=== PATIENT | female | born 1965 | race Caucasian/White ===

== ENCOUNTER 2019-08-04 12:18 | Emergency (ER) | payer OTHER ==
--- NOTE | 2019-08-04 12:45 | ED Physician Documentation ---
History of Present Illness - Stated complaint Stated Complaint: ABD PX - Chief complaint Chief Complaint: Abd Pain - Additonal information Additional information: This is a 54-year-old female who presents with migratory abdominal cramping pa in, nausea, vomiting, and diarrhea. Patient began feeling rundown a few days ago, and then early this morning she began having multiple episodes of nonbloody vomiting and nonbloody diarrhea. She thinks she may have norovirus. She has cramping which comes and goes but can be severe at times, is currently worse in the left upper quadrant. She denies any abdominal surgeries other than a tubal ligation. No fever. 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 - Present Medications Home Medications: Ambulatory Orders Medication Instructions Recorded Confirmed Ondansetron Odt [Zofran] 4 mg TL Q6H PRN #10 tablet 08/04/19 - Allergies Allergies/Adverse Reactions: Allergies Allergy/AdvReac Type Severity Reaction Status Date / Time diatrizoate meglumine Allergy Hives Verified 08/04/19 12:31 [From Gastrografin] diatrizoate sodium Allergy Hives Verified 08/04/19 12:31 [From Gastrografin] - Living Situation Living Situation: reports: With family Living Arrangement: reports: At home PD ED PE NORMAL - Vitals Vital signs reviewed: Yes - General General: Alert and oriented X 3, No acute distress - HEENT HEENT: PERRL - Neck Neck: Supple, no meningeal sign - Cardiac Cardiac: RRR, No murmur - Respiratory Respiratory: Clear bilaterally - Abdomen Abdomen: Other (Soft, mild epigastric and left upper quadrant tenderness, no right upper quadrant tenderness, negative Herrera sign, no lower abdominal tenderness.) - Derm Derm: Warm and dry - Extremities Extremities: No deformity - Neuro Neuro: Alert and oriented X 3 - Psych Psych: Normal mood, Normal affect Results - Vitals Vitals: Oxygen O2 Source Room air - Labs Labs: Laboratory Tests 08/04/19 08/04/19 08/04/19 13:07 13:07 14:11 WBC 8.0 RBC 4.82 Hgb 14.1 Hct 42.2 MCV 87.6 MCH 29.3 MCHC 33.4 RDW 12.7 Plt Count 303 MPV 9.4 Neut # (Auto) 6.8 H Lymph # (Auto) 0.8 L [place] # (Auto) 0.3 Eos # (Auto) 0.0 Baso # (Auto) 0.0 Absolute Nucleated RBC 0.00 Nucleated RBC % 0.0 Sodium 139 Potassium 3.6 Chloride 101 Carbon Dioxide 26 Anion Gap 12.0 BUN 16 Creatinine 0.8 Estimated GFR (MDRD) 74 L Glucose 121 H Calcium 9.4 Total Bilirubin 0.8 AST 26 ALT 23 Alkaline Phosphatase 62 Total Protein 8.0 Albumin 4.7 Globulin 3.3 Albumin/Globulin Ratio 1.4 Lipase 40 Urine Color YELLOW Urine Clarity CLEAR Urine pH 8.5 H Ur Specific [place] 1.015 Urine Protein NEGATIVE Urine Glucose (UA) NEGATIVE Urine Ketones TRACE Urine Occult Blood NEGATIVE Urine Nitrite NEGATIVE Urine Bilirubin NEGATIVE Urine Urobilinogen 0.2 (NORMAL) Ur Leukocyte Esterase NEGATIVE Ur Microscopic Review NOT INDICATED Urine Culture Comments NOT INDICATED Urine HCG, Qual NEGATIVE PD MEDICAL DECISION MAKING - ED course Complexity details: considered differential (Gastroenteritis, cholecystitis, pancreatitis, enteritis, GERD, electrolyte abnormality) ED course: Patient is nontoxic-appearing on exam, she has benign abdomen with no focal right upper quadrant or right lower quadrant tenderness. Labs are drawn and are unremarkable. Urine is negative for signs of infection. Patient was given Zofran, fluids, And dicyclomine, and on repeat exam she is feeling improved. She still does have some migratory cramping, but continues have a benign abdominal exam. Given her nausea vomiting diarrhea and migratory cramping this does appear to be a gastroenteritis, which has been going through the community recently. I discussed supportive care and prescribed her Zofran, and discussed return precautions including persistent vomiting or abdominal pain which is increasing or settling to one area of the demented. She is tolerating PO here. Patient agreed with this plan and was discharged home Departure - Departure Disposition: 01 Home, Self Care Clinical Impression: Gastroenteritis Condition: Good Instructions: ED Gastroenteritis Viral Follow-Up: Your,PCP [Other] - Within 1 week Prescriptions: Ondansetron Odt [Zofran] 4 mg TL Q6H PRN #10 tablet PRN Reason: Nausea / Vomiting Comments: You appear to have a gastroenteritis/stomach bug. You may take the Zofran as prescribed for nausea. You may also try Tylenol for mild discomfort. If you are having persistent vomiting despite the Zofran, inability to hold down fluids, or if your abdominal pain is increasing or settling to one part of the abdomen, particularly the right lower or the right upper part of the abdomen, return to the emergency department. Discharge Date/Time: 08/04/19 14:43
[2019-08-04] MEDS ORDERED: SODIUM CHLORIDE 0.9% 1,000 ML IV STA (12:54)
[2019-08-04] MEDS ORDERED: ONDANSETRON 4 MG/2 ML VIAL IVP STA (12:54)
[2019-08-04 13:14] LABS: BASOPHILS % (AUTO) 0.3 %; EOSINOPHILS % (AUTO) 0.1 %; HGB - HEMOGLOBIN 14.1 g/dL (12.0-16.0); LYMPHOCYTES # (AUTO) 0.8 10^3/uL (1.5-3.5); LYMPHOCYTES % (AUTO) 10.5 %; MEAN CORPUSCULAR HEMOGLOBIN 29.3 pg (27.0-31.0); MEAN CORPUSCULAR HGB CONC 33.4 g/dL (32.0-36.0); MEAN CORPUSCULAR VOLUME 87.6 fL (81.0-99.0); MEAN PLATELET VOLUME 9.4 fL (7.9-10.8); MONOCYTES # (AUTO) 0.3 10^3/uL (0.0-1.0); MONOCYTES % (AUTO) 3.6 %; NEUTROPHILS # (AUTO) 6.8 10^3/uL (1.5-6.6); PLT - PLATELET COUNT 303 10^3/uL (130-450); RED BLOOD COUNT 4.82 10^6/uL (4.20-5.40); RED CELL DISTRIBUTION WIDTH 12.7 % (12.0-15.0)
[2019-08-04 14:05] LABS: ALBUMIN 4.7 g/dL (3.2-5.5); ALBUMIN/GLOBULIN RATIO 1.4 (1.0-2.2); BILIRUBIN,TOTAL 0.8 mg/dL (0.2-1.0); CALCIUM 9.4 mg/dL (8.5-10.3); CREATININE 0.8 mg/dL (0.4-1.0)
[2019-08-04 14:19] LABS: BILIRUBIN,URINE NEGATIVE (NEGATIVE); GLUCOSE, URINE (UA) NEGATIVE (NEGATIVE); KETONES,URINE (UA) TRACE mg/dL (NEGATIVE); LEUKOCYTE ESTERASE, URINE NEGATIVE (NEGATIVE); NITRITE,URINE NEGATIVE (NEGATIVE); OCCULT BLOOD,URINE NEGATIVE (NEGATIVE); PH,URINE 8.5 PH (5.0-7.5); PROTEIN,URINE NEGATIVE (NEGATIVE); UROBILINOGEN,URINE 0.2 (NORMAL) E.U./dL (NORMAL)
[2019-08-04] MEDS ORDERED: ONDANSETRON ODT 4 MG TABLET TL STA (14:21)
[2019-08-04 14:26] LABS: CLARITY,URINE CLEAR (CLEAR); HCG UR QUAL NEGATIVE
[2019-08-04] MEDS ORDERED: DICYCLOMINE 10 MG CAPSULE PO STA (14:26)
[2019-08-04 14:36] VITALS: BP 123/83
== END 2019-08-04 14:43 | disposition home or self-care (01) ==
LOC: ED 12:18
DX: K52.9 Noninfective gastroenteritis and colitis, unspecified (principal)
CPT/HCPCS: 36415; 80053; 81003; 81025; 83690; 85025; 96361; 96374; 99283; 99284; A9270; Q0162; 81001; 87086

== ENCOUNTER 2020-08-10 15:24 | Outpatient (CLI) | payer OTHER ==
[2020-08-10 20:32] LABS: URIC ACID 7.5 mg/dL (2.6-7.2)
[2020-08-10 20:34] LABS: CRP - C-REACTIVE PROTEIN < 1.0 mg/dL (0-1.0)
[2020-08-10 20:41] LABS: RHEUMATOID FACTOR NEGATIVE (Negative)
== END 2020-08-10 15:25 | disposition home or self-care (01) ==
LOC: LAB.S 15:24
PROVIDERS: ATTEND Physician Assistant
DX: M45.9 Ankylosing spondylitis of unspecified sites in spine (principal); M79.671 Pain in right foot; M79.672 Pain in left foot
CPT/HCPCS: 36415; 84550; 85651; 86140; 86200; 86430; 86812

== ENCOUNTER 2020-10-08 09:19 | Outpatient (CLI) | payer OTHER ==
[2020-10-08 14:49] LABS: BASOPHILS % (AUTO) 0.5 %; EOSINOPHILS # (AUTO) 0.1 10^3/uL (0.0-0.7); EOSINOPHILS % (AUTO) 1.4 %; HGB - HEMOGLOBIN 12.4 g/dL (12.0-16.0); LYMPHOCYTES # (AUTO) 1.5 10^3/uL (1.5-3.5); LYMPHOCYTES % (AUTO) 34.5 %; MEAN CORPUSCULAR HEMOGLOBIN 29.4 pg (27.0-31.0); MEAN CORPUSCULAR HGB CONC 32.1 g/dL (32.0-36.0); MEAN CORPUSCULAR VOLUME 91.5 fL (81.0-99.0); MEAN PLATELET VOLUME 9.9 fL (7.9-10.8); MONOCYTES # (AUTO) 0.4 10^3/uL (0.0-1.0); MONOCYTES % (AUTO) 9.6 %; NEUTROPHILS # (AUTO) 2.3 10^3/uL (1.5-6.6); NEUTROPHILS % (AUTO) 53.5 %; PLT - PLATELET COUNT 269 10^3/uL (130-450); RED BLOOD COUNT 4.22 10^6/uL (4.20-5.40); RED CELL DISTRIBUTION WIDTH 12.8 % (12.0-15.0); WHITE BLOOD COUNT 4.3 x10^3/uL (4.8-10.8)
[2020-10-08 15:34] LABS: ALBUMIN/GLOBULIN RATIO 1.4 (1.0-2.2); ALKALINE PHOSPHATASE 61 IU/L (42-121); ALT ALANINE AMINOTRANSFERASE 19 IU/L (10-60); AST ASPARTATE AMINOTRANSFERASE 22 IU/L (10-42); BILIRUBIN,TOTAL 0.5 mg/dL (0.2-1.0); BUN - BLOOD UREA NITROGEN 14 mg/dL (6-20); CALCIUM 9.3 mg/dL (8.5-10.3); CARBON DIOXIDE - CO2 26 mmol/L (21-32); CHLORIDE 105 mmol/L (101-111); CHOL/HDL RATIO 3.9 (<4.4); CHOLESTEROL 256 mg/dL; CREATININE 0.9 mg/dL (0.4-1.0); GLUCOSE 106 mg/dL (70-100); HDL CHOLESTEROL 65 mg/dL; LDL CHOLESTEROL,CALCULATED 167 mg/dL; LDL/HDL RATIO 2.6 (<4.4); TOTAL PROTEIN 6.8 g/dL (6.7-8.2); VLDL CHOLESTEROL 24 mg/dL
[2020-10-08 15:47] LABS: HEMOGLOBIN A1c% 5.7 % (4.27-6.07)
== END 2020-10-08 09:20 | disposition home or self-care (01) ==
LOC: LAB.S 09:19
PROVIDERS: ATTEND Physician Assistant
DX: Z00.00 Encounter for general adult medical examination without abnormal findings (principal); R53.83 Other fatigue; G47.00 Insomnia, unspecified
CPT/HCPCS: 36415; 80053; 80061; 83036; 83721; 85025

== ENCOUNTER 2023-06-12 08:42 | Outpatient (CLI) | payer BC ==
[2023-06-12 15:30] LABS: BASOPHILS % (AUTO) 0.7 %; EOSINOPHILS # (AUTO) 0.1 10^3/uL (0.0-0.7); EOSINOPHILS % (AUTO) 1.6 %; HCT - HEMATOCRIT 41.2 % (37.0-47.0); HGB - HEMOGLOBIN 13.5 g/dL (12.0-16.0); LYMPHOCYTES # (AUTO) 1.5 10^3/uL (1.5-3.5); MEAN CORPUSCULAR HGB CONC 32.8 g/dL (32.0-36.0); MEAN CORPUSCULAR VOLUME 91.6 fL (81.0-99.0); MONOCYTES # (AUTO) 0.3 10^3/uL (0.0-1.0); MONOCYTES % (AUTO) 7.7 %; NEUTROPHILS # (AUTO) 2.4 10^3/uL (1.5-6.6); PLT - PLATELET COUNT 285 10^3/uL (130-450); RED CELL DISTRIBUTION WIDTH 12.6 % (12.0-15.0); WHITE BLOOD COUNT 4.3 x10^3/uL (4.8-10.8)
[2023-06-12 15:54] LABS: ALBUMIN 4.4 g/dL (3.2-5.5); ALBUMIN/GLOBULIN RATIO 1.8 (1.0-2.2); ALKALINE PHOSPHATASE 61 IU/L (42-121); ALT ALANINE AMINOTRANSFERASE 13 IU/L (10-60); AST ASPARTATE AMINOTRANSFERASE 16 IU/L (10-42); BILIRUBIN,TOTAL 0.7 mg/dL (0.2-1.0); BUN - BLOOD UREA NITROGEN 16 mg/dL (6-20); CALCIUM 9.7 mg/dL (8.5-10.3); CARBON DIOXIDE - CO2 31 mmol/L (21-32); CHLORIDE 104 mmol/L (101-111); CHOL/HDL RATIO 4.8 (<4.4); CHOLESTEROL 257 mg/dL; CREATININE 0.9 mg/dL (0.6-1.3); GFR - MDRD 64 (>89); GLUCOSE 112 mg/dL (74-104); HDL CHOLESTEROL 54 mg/dL; LDL CHOLESTEROL,CALCULATED 172 mg/dL; LDL/HDL RATIO 3.2 (<4.4); POTASSIUM 4.4 mmol/L (3.5-4.5); SODIUM 140 mmol/L (135-145); TOTAL PROTEIN 6.9 g/dL (6.4-8.9); TRIGLYCERIDES 155 mg/dL (48-352); VLDL CHOLESTEROL 31 mg/dL
[2023-06-12 16:03] LABS: THYROID STIMULATING HORMONE 3.25 uIU/mL (0.34-5.60)
== END 2023-06-12 08:43 | disposition home or self-care (01) ==
LOC: LAB.S 08:42
PROVIDERS: ATTEND Registered Nurse
DX: Z13.228 Encounter for screening for other metabolic disorders (principal); Z13.220 Encounter for screening for lipoid disorders; Z13.29 Encounter for screening for other suspected endocrine disorder; Z13.0 Encounter for screening for diseases of the blood and blood-forming organs and certain disorders involving the immune mechanism
CPT/HCPCS: 36415; 80053; 80061; 83721; 84443; 85025

== ENCOUNTER 2023-07-04 13:01 | Outpatient (CLI) | payer BC ==
[2023-07-04] MEDS ORDERED: iohexoL-300 100 ML VIAL IVP ONE (13:50)
--- NOTE | 2023-07-04 20:31 | CT Report ---
PROCEDURE: ANGIO ABDOMEN/PELVIS W INDICATIONS: VASCULAR INSUFFICIENCY CONTRAST: 100 milliliters. See chart. TECHNIQUE: After the administration of intravenous contrast, 2.5 mm thick sections acquired from the diaphragm t o the symphysis. 10 mm maximum-intensity projection (MIP) reformats were then acquired. For radiati on dose reduction, the following was used: automated exposure control, adjustment of mA and/or kV ac cording to patient size. COMPARISON: None FINDINGS: Image quality: Excellent. Aorta: Widely patent Mesenteric arteries: Celiac trunk, superior and inferior mesenteric arteries appear patent. Renal arteries: Widely patent. Right pelvic arteries: Widely patent Left pelvic arteries: Widely patent Extravascular soft tissues: Lung bases are clear. Heart size is normal. Liver and spleen are hesham l in size and enhancement. Gallbladder is contracted, unremarkable. Biliary system is non dilated. Pancreas enhances normally. No adrenal nodules. Kidneys are normal in size and enhancement, withou t hydronephrosis. Non opacified bowel loops are normal in wall thickness and caliber. No free fluid or air. No retroperitoneal or mesenteric adenopathy. No ventral hernias. No suspicious bony lesio ns. No vertebral body compression fractures. Remote posterior decompression and posterior lateral f usion at L5-S1. IMPRESSION: 1. No evidence of chronic or acute mesenteric ischemia. 2. Unremarkable colon. Otherwise unremarkable bowel. Reviewed by: Dillon Blankenship MD on 07/04/2023 8:29 PM PDT Approved by: Dillon Blankenship MD on 07/04/2023 8:29 PM PDT Station ID: [id number]
== END 2023-07-04 13:02 | disposition home or self-care (01) ==
LOC: DI 13:01
PROVIDERS: ATTEND Registered Nurse
DX: K55.1 Chronic vascular disorders of intestine (principal)
CPT/HCPCS: 74174; Q9967

== ENCOUNTER 2023-07-09 13:08 | Outpatient (CLI) | payer BC ==
[2023-07-09] MEDS ORDERED: ALBUTEROL 1 PUFF INH STA (14:31)
== END 2023-07-09 13:09 | disposition home or self-care (01) ==
LOC: RT 13:08
PROVIDERS: ATTEND Registered Nurse
DX: R06.02 Shortness of breath (principal)
CPT/HCPCS: 94060

== ENCOUNTER 2023-07-17 08:55 | Outpatient (CLI) | payer BC ==
--- NOTE | 2023-07-17 07:21 | CARDIAC PROCEDURE NOTE ---
Stress Test Report Service Date: 07/17/23 Service Time: 09:30 Ordering Provider: Gris Rankin FNP-C Indication for Test: Assess for an ischemic contribution to Myrna's marked decrease in exertional tolerance following severe Covid infection in Jan, 2023, Significant Medical History: Myrna reports that she was in excellent physical condition ("a force") until she exprerienced a prolonged Covid infection, that she probably contracted on a long flight back from the "trip of a lifetime" to [place]. During this time she felt "as if my muscles were disintegrating". She had a very slow and incomplete recovery of her ambulatory status and notes significant continued impairment in her ability to perform tasks that she used to do; she gives examples of being unable to complete her lawn mowing and being uncomfortably short of breath after 2 minutes of home treadmill exercise, when she used to be able to walk for >12 minutes. She also experiences occasional, non-exertional, "knot-like" mid chest discomfort that lasts for a few to 20 minutes, that she suspects has been due to stress. She has undergone spirometry and a CTA of chest/abdomen/pelvis that were reportedly unremarkable. Cardiac Risk Factors: Positive for hyperlipidemia (not treated, last LDLc on 06/12/23 was 172 with HDLc of 54, TG 155); no history of hypertension, diabetes, family history of known CAD (though mom has AFib) or significant tobacco use (she smoked 1 ppd until quitting 10 yrs ago, so no longer a major risk). Type of Stress Test: ETT with Echocardiography Procedure: -Exercise Treadmill Test- After signing informed consent, the patient underwent echo imaging at rest and then performed treadmill exercise using a Modified Can protocol. The patient exercised for 12 minutes 49 seconds and achieved a peak heart rate of 146 (91 percent predicted maximum heart rate for age), and an estimated workload of 8.3 METS. The test was terminated due to fatigue/shortness of breath. Resting heart rate: 71 Peak heart rate: 146 Normal response to exercise. Resting BP: 102/67 Peak BP: 167/62 Normal response of systolic and diastolic BP to exercise. Rhythm during exercise: Sinus rhythm throughout without ectopy. Symptoms: She reported NO chest discomfort. EKG at rest showed normal sinus rhythm with generalized low QRS voltages, flattened precordial T waves, but isoelectric ST segments throughout. EKG at peak stress showed no ischemia by EKG criteria. In Recovery HR and BP rapidly/normally returned to baseline levels. Echo imaging, performed at rest and with stress, will be reported separately. I, Rick Nuñez MD, was present throughout this treadmill stress study and supervised it in its entirety. Summary: 1) Exercise tolerance at least average for age and sex as evidenced by JIHAN of 0 (on the Can protocol scale) to -83% (on the modified Can scale). 2) Normal resting EKG. 3) Adequate level of exercise was achieved on this treadmill stress test. 4) Normal BP response to exercise. 5) No ischemic changes by EKG criteria were seen at peak stress. 6) Echo image interpretation reveals normal left ventricular size, wall thickness and systolic function, with appropriate hyperdynamic augmentation of all segments with exercise, indicating no evidence of prior infarct or inducible ischemia. Due to rapid (and prognostically favorable) post-exercise decrease in HR, most of the echo images were obtained at sub-diagnostic heart rates, decreasing sensitivity to detect ischemia. No significant valvular abnormality or elevation of estimated pulmonary artery systolic pressure seen on screening study. See separate report for more details. Conclusions and Recommendations: 1) Reassuring treadmill stress echocardiogram, negative for ischemia by symptoms and EKG, with echo images likely normal, but with reduced diagnostic sensitivity due to rapidly decreasing HR post-exercise. 2) I suggested she discuss with her referring provider being seen at one of the "Long Covid" clinics in [place] (e.g. at the [facility]) to see if any other insights could be determined regarding her apparent long Covid syndrome.
== END 2023-07-17 08:56 | disposition home or self-care (01) ==
LOC: DI 08:55
PROVIDERS: ATTEND Registered Nurse
DX: U07.1 COVID-19 (principal); R53.83 Other fatigue; E78.5 Hyperlipidemia, unspecified; Z87.891 Personal history of nicotine dependence
CPT/HCPCS: 93350

== ENCOUNTER 2024-04-18 08:24 | Outpatient (CLI) | payer BC | END 2024-04-18 08:25 | disposition home or self-care (01) | LOC: LAB.S 08:24 | PROVIDERS: ATTEND Registered Nurse | DX: R53.83 Other fatigue (principal); Z82.61 Family history of arthritis | CPT/HCPCS: 36415; 86140 ==